=== PATIENT | male | born 1980 | race Caucasian/White ===

== ENCOUNTER 2017-09-26 02:36 | Inpatient (IN) | payer OTHER ==
[~2017-09-26] VITALS: Ht 177.8 cm; Wt 211.8 kg
[2017-09-26 02:49] VITALS: Ht 177.8 cm; Wt 211.8 kg
[2017-09-26 03:23] LABS: BASOPHIL % 0.4 % (0-2); PLATELET COUNT 329 x10^3mcL (130-400)
[2017-09-26 03:25] LABS: RED CELL DISTRIBUTION WIDTH 16.8 % (11.5-14.5)
[2017-09-26 03:33] LABS: CALCIUM 8.7 mg/dL (8.5-10.1); CARBON DIOXIDE 23.1 mmol/L (21-32); CHLORIDE SERUM 101 mmol/L (98-107); CREATININE SERUM 0.9 mg/dL (0.7-1.3); GFR1 > 60 mL/min; GLUCOSE SERUM 102 mg/dL (74-106); POTASSIUM SERUM 3.3 mmol/L (3.5-5.1); SODIUM SERUM 138 mmol/L (136-145)
[2017-09-26 03:38] LABS: ALKALINE PHOSPHATASE 116 U/L (46-116); ALT/SGPT 38 U/L (16-63); AST/SGOT 17 U/L (15-37); LIPASE 163 IU/L (73-393); TOTAL PROTEIN, SERUM 7.4 g/dL (6.4-8.2)
[2017-09-26 03:41] LABS: ALBUMIN 3.2 g/dL (3.4-5.0)
[2017-09-26 04:59] LABS: UA SPECIFIC GRAVITY 1.015 (1.005-1.035); microscopic required? YES; urine erythrocyte 3+ (NEGATIVE)
[2017-09-26 07:25] LABS: T3 TOTAL 1.51 ng/mL
[2017-09-26 07:40] LABS: MAGNESIUM 2.1 mg/dL (1.8-2.4); PHOSPHOROUS 3.1 mg/dL (2.5-4.9)
[2017-09-26 07:43] LABS: CHOLESTEROL/HDL RATIO 3.9
[2017-09-26 07:48] VITALS: BP 156/83
[2017-09-26 08:03] LABS: FREE T4 0.98 ng/dL (0.76-1.46); FREE THYROXINE INDEX 2.9 ug/dL (1.4-4.5); T4(THYROXINE) 8.8 ug/dL (4.7-13.3)
[2017-09-26 09:09] VITALS: BP 141/77
[2017-09-26 09:46] VITALS: BP 141/77
[2017-09-26 12:17] LABS: AMPHETAMINE QUAL UR NONE DETECTED (See below)
[2017-09-26 13:26] VITALS: BP 120/64
[2017-09-26 20:13] VITALS: BP 96/66
== END 2017-09-27 05:24 | disposition left against medical advice (07) | DRG 872 ==
LOC: ED 02:36 → MU 06:01 → DU 07:20
PROVIDERS: Emergency Medicine; Family Medicine
DX: A41.9 Sepsis, unspecified organism (principal); E44.1 Mild protein-calorie malnutrition; Z68.44 Body mass index [BMI] 60.0-69.9, adult; N10 Acute pyelonephritis; R65.20 Severe sepsis without septic shock; E66.01 Morbid (severe) obesity due to excess calories; E87.6 Hypokalemia; N20.0 Calculus of kidney; K76.0 Fatty (change of) liver, not elsewhere classified; N28.1 Cyst of kidney, acquired; Z88.0 Allergy status to penicillin; Z88.8 Allergy status to other drugs, medicaments and biological substances; Z90.49 Acquired absence of other specified parts of digestive tract; Z53.21 Procedure and treatment not carried out due to patient leaving prior to being seen by health care provider
CPT/HCPCS: 83880; 84439; J1170; J1885; J1956; J2270; J2405; J7030; Q0092; Q0162

== ENCOUNTER → 2019-01-14 | Outpatient (CLI) | payer OTHER | END | disposition home or self-care (01) | LOC: CT 03:56 | PROC: BW25ZZZ Computerized Tomography (CT Scan) of Chest, Abdomen and Pelvis (ICD-10-PCS; principal; 2019-01-14) | DX: R10.9 Unspecified abdominal pain (principal) ==